=== PATIENT | female | born 1980 | race African-American/Black ===

== ENCOUNTER 2017-04-14 05:33 | Inpatient (IN) ==
[2017-04-14] MEDS ORDERED: ceFAZolin 2,000 MG in PREMIX 1 EACH IV ONE (05:41)
[2017-04-14] MEDS ORDERED: CITRIC ACID/SODIUM CITRATE 30 ML UDCUP PO ONE (05:41)
[2017-04-14] MEDS ORDERED: FAMOTIDINE 20 MG/2 ML VIAL IV ONE (05:41)
[2017-04-14 06:12] LABS: Basophils % 0.1 % (0.0-0.8); Eosinophils # 0.1 10*3/uL (0.0-0.87); Eosinophils % 0.7 % (0.00-10.9); Hematocrit 37.3 VOL% (35.7-47.0); Hemoglobin 12.5 GM/DL (12.0-16.0); Immature Granulocytes % 0.4 %; Immature Granulocytes Absolute 0.03 #; Lymphocytes # 1.6 10*3/uL (1.4-4.0); Lymphocytes % 23.2 % (21.3-54.2); Mean Corpuscular HGB Conc 33.5 GM/DL (32-36); Mean Corpuscular Hemoglobin 30 PG (27-34); Mean Corpuscular Volume 88.6 FL (87-102); Mean Platelet Volume 12.8 FL (9.6-12.0); Monocytes # 0.7 10*3/uL (0.11-0.8); Monocytes % 10.1 % (1.7-12.7); Neutrophils # 4.6 10*3/uL (1.4-7.4); Neutrophils % 65.5 % (38.7-73.9); Platelet Count 143 T/CUMM (130-400); Red Blood Count 4.21 MC/CUMM (3.8-5.5); Red Cell Distribution Width 13.5 % (9.3-17.3)
[2017-04-14] MEDS: LACTATED RINGERS 1,000 ML IV SCH ×5 (06:20→22:36)
[2017-04-14 06:24] LABS: PT Patient Result 10.5 SECS
[2017-04-14 06:31] LABS: Alanine Aminotransferase 19 U/L (13-56); Albumin 2.9 G/DL (3.4-5.0); Alkaline Phosphatase 202 U/L (45-117); Aspartate Amino Transferase 25 U/L (0-37); Bilirubin,Total < 0.39 MG/DL (0.2-1.0); Blood Urea Nitrogen 6 MG/DL (7-18); Calcium 9.2 MG/DL (8.5-10.1); Glucose 79 MG/DL (74-106); Osmolality,Calculated 275.4 MOS/KG (273-304); Sodium 140 MMOL/L (136-145); Total Protein 6.8 G/DL (6.4-8.3)
[2017-04-14] MEDS ORDERED: LABETALOL 200 MG TABLET PO ONE (08:00)
[2017-04-14] MEDS ORDERED: OXYTOCIN/LR 20 UNIT/1,000 ML BAG IV ONE ×2 (10:09→15:40)
[2017-04-14 10:37] LABS: Apearance,Urine CLEAR (Clear); Bacteria,Urine Many /HPF (Few); Bilirubin,Urine Negative (Negative); Blood, Urine Negative (Negative); Glucose,Urine (UA) Negative (Negative); Ketones,Urine 5 mg/dL (Negative); Mucus,Urine Occasional /LPF (Occasional); Nitrite,Urine Negative (Negative); Protein,Urine Negative; RBC,Urine <1 /HPF (0-4); Urine Color Yellow (Yellow); Urine Specific Gravity 1.009 (1.001-1.035); Urine Urobilinogen < 2.0 EU/DL (0.2-1.0); WBC,Urine 2 /HPF (0-6)
[2017-04-14] MEDS ORDERED: TISSUE ADHESIVE 1 EACH APPLICATOR TOP ONE (15:21)
[2017-04-14] MEDS ORDERED: SIMETHICONE CHEW 80 MG TABLET PO PRN (15:40)
[2017-04-14] MEDS ORDERED: fentaNYL 100 MCG/2 ML VIAL ONE (15:40)
[2017-04-14] MEDS ORDERED: ONDANSETRON 4 MG/2 ML VIAL IV PRN (15:40)
[2017-04-14] MEDS ORDERED: ACETAMINOPHEN 325 MG TABLET PO PRN (15:40)
--- NOTE | 2017-04-14 15:47 | Operative Note ---
Date of procedure: 04/14/17 Pre-op diagnosis: at term for repeat delivery, voluntary sterilization Post-op diagnosis: same Procedure: Repeat low transverse delivery, Filshie clip tubal sterilization Patient was taken the operating room, administered a spinal anesthetic and sterilely prepped and draped in the supine position with a Pollock catheter in place. A lower abdominal transverse incision was made through the skin and carried downward to the anterior rectus sheath. Individual bleeding sites were fulgurated for hemostasis. The anterior rectus sheath was incised transversely and dissected away from the underlying rectus muscle. Rectus muscle was divided in the midline and retracted bilaterally. Peritoneum was elevated with a pair of hemostats and the peritoneum incised with Metzenbaum scissors and extended longitudinally under direct visualization. Bladder blade was placed in the lower portion of the incision and vesicouterine fold identified. This was elevated and incised transversely with Metzenbaum scissors and the bladder dissected away from the lower uterine segment. Transverse incision was made with scissors through the lower uterine segment and membranes were reached the myometrium was expanded digitally with pressure and the membranes ruptured with an Allis clamp. A hand was grasp into the lower uterine segment and the head grasped and delivered into the incision. The head was stabilized with a single forceps blade and delivered with fundal pressure. The nasopharynx was suctioned and the cord clamped and cut. was transferred to the warmer. The placenta was delivered manually and Pitocin drip administered. The uterus was externalized and placed on traction. Inner layer of the myometrium was closed with a running interlocking stitch of 1-0 Vicryl. The outer layer was closed with a running stitch of 1-0 Vicryl. The vesicouterine fold was closed with running stitch of 1-0 Vicryl. A Filshie clip was placed at the junction of the mid and inner one third of the fallopian tube. Uterus was replaced in the abdomen and the abdomen irrigated with normal saline. The peritoneum was elevated and closed with running suture of 2-0 Vicryl. Rectus muscle was reapproximated in the midline with running stitch of 2-0 Vicryl. The anterior rectus sheath was closed with a running interlocking suture of 1-0 Vicryl in laterally and meeting in the midline. Stay sutures were placed either side of the midline time. The fat was irrigated and closed with running suture of 2-0 Vicryl. Again was closed with a running subcuticular suture of 3-0 Vicryl. Dermabond was placed on the wound. Anesthesia: spinal, epidural Surgeon / Physician: Tha Fournier Swinging Cut Off Saw Operator: Sally Pollard Estimated blood loss: other (500 cc) Specimens: other (Placenta) Condition: stable Disposition: floor Results - Labs CBC & BMP: 04/14/17 06:02 04/14/17 06:02 Discharge Plan - Discharge Medications No Action Labetalol Tab [Trandate Tab] 200 mg PO BID Vit No.130/Iron/Folic [ Tablet] 1 tablet PO DAILY - Follow Up or Referral - Forms/Instructions
[2017-04-14] MEDS ORDERED: RHO(D) IMMUNE GLOBULIN 300 MCG SYRINGE IM ONE (16:00)
--- NOTE | 2017-04-14 16:06 | Anesthesia Post-Op ---
Anesthesia Post OP - Post Ansesthetic Evaluation Patient seen in post op: Yes Resp: within normal limits CV: within normal limits Mental: within normal limits Temp: within normal limits [id number]: within normal limits Nausea and Vomiting: within normal limits Pain: within normal limits
[2017-04-14] MEDS ORDERED: LABETALOL 100 MG TABLET ONE (20:25)
[2017-04-14] MEDS: DOCUSATE SODIUM 100 MG CAPSULE PO SCH (20:28)
[2017-04-14] MEDS: IBUPROFEN 800 MG TABLET PO PRN (20:28)
[2017-04-14] MEDS: LABETALOL 100 MG TABLET PO SCH (20:35)
[2017-04-14 22:22] LABS: Basophils % 0.2 % (0.0-0.8); Hematocrit 32.8 VOL% (35.7-47.0); Hemoglobin 11.2 GM/DL (12.0-16.0); Immature Granulocytes % 0.6 %; Immature Granulocytes Absolute 0.07 #; Lymphocytes # 0.7 10*3/uL (1.4-4.0); Lymphocytes % 6.1 % (21.3-54.2); Mean Corpuscular HGB Conc 34.1 GM/DL (32-36); Mean Corpuscular Hemoglobin 30 PG (27-34); Mean Corpuscular Volume 89.1 FL (87-102); Mean Platelet Volume 12.2 FL (9.6-12.0); Monocytes # 0.9 10*3/uL (0.11-0.8); Monocytes % 7.2 % (1.7-12.7); Neutrophils # 10.2 10*3/uL (1.4-7.4); Neutrophils % 85.9 % (38.7-73.9); Platelet Count 120 T/CUMM (130-400); Red Blood Count 3.68 MC/CUMM (3.8-5.5); Red Cell Distribution Width 13.4 % (9.3-17.3); White Blood Count 11.9 T/CUMM (4-12)
[2017-04-15] MEDS: LACTATED RINGERS 1,000 ML IV SCH ×4 (00:17→06:17)
[2017-04-15 05:20] LABS: Basophils % 0.2 % (0.0-0.8); Eosinophils % 0.1 % (0.00-10.9); Hematocrit 28.7 VOL% (35.7-47.0); Hemoglobin 9.6 GM/DL (12.0-16.0); Immature Granulocytes % 0.5 %; Immature Granulocytes Absolute 0.05 #; Lymphocytes # 1.2 10*3/uL (1.4-4.0); Lymphocytes % 11.2 % (21.3-54.2); Mean Corpuscular HGB Conc 33.4 GM/DL (32-36); Mean Corpuscular Hemoglobin 30 PG (27-34); Mean Corpuscular Volume 88.9 FL (87-102); Mean Platelet Volume 12.6 FL (9.6-12.0); Monocytes # 0.9 10*3/uL (0.11-0.8); Monocytes % 8.1 % (1.7-12.7); Neutrophils # 8.4 10*3/uL (1.4-7.4); Neutrophils % 79.9 % (38.7-73.9); Platelet Count 119 T/CUMM (130-400); Red Blood Count 3.23 MC/CUMM (3.8-5.5); Red Cell Distribution Width 13.3 % (9.3-17.3); White Blood Count 10.5 T/CUMM (4-12)
[2017-04-15 06:12] LABS: Lymphocytes 8 % (20-55); Platelet Estimate Adequate; Segmented Neutrophils 87 % (50-85); Total Cells Counted 100
[2017-04-15] MEDS: MULTIVITAMIN (PRENATAL) TABLET PO SCH (09:25)
[2017-04-15] MEDS: DOCUSATE SODIUM 100 MG CAPSULE PO SCH ×2 (09:28→20:19)
[2017-04-15] MEDS: MAGNESIUM HYDROXIDE SUSP 30 ML UDCUP PO PRN ×2 (09:29→20:19)
--- NOTE | 2017-04-15 09:55 | OB/GYN Progress Note ---
Assessment and Plan (1) delivery, delivered, current hospitalization Status: Acute Assessment and plan: Satis progress, prepared for discharge in the morning. Current Visit: Yes [employer] - PN: Subj Interval history: Admitted yesterday for routine repeat delivery, which is performed without complication. Is having no complaints today. His ambulate and voiding tolerating diet and passing flatus and doing well with pain medicine. Exam [employer] - Constitutional Vitals: Vital Signs Temp Pulse Resp BP Pulse Ox 04/15/17 07:38 98.1 F 79 20 150/87 98 04/15/17 04:00 98.2 F 77 20 148/79 99 04/15/17 02:00 20 04/15/17 00:15 99.2 F 88 20 158/96 98 04/14/17 22:00 20 04/14/17 20:15 77 20 150/73 99 04/14/17 19:15 98.8 F 89 20 152/65 97 04/14/17 18:45 71 20 140/74 99 04/14/17 18:15 98.1 F 70 20 149/91 99 General appearance: no acute distress - Head Head exam: Present: normal inspection - Respiratory Respiratory exam: Present: clear to auscultation bilaterally. Absent: accessory muscle use - Cardiovascular Cardiovascular exam: Present: regular rate and rhythm - GI/Abdominal GI/Abdominal exam: Present: normal bowel sounds, soft, other (Fundus is tonic and nontender, incision is healing well and dressing is dry). Absent: guarding , tenderness, rebound - Extremities Exam Extremities exam: Present: normal inspection - Back Exam Back exam: Present: normal inspection - Neurological Exam Neurological exam: Present: alert, oriented X3 - Psychiatric Psychiatric exam: Present: normal affect, normal mood - Skin Skin exam: Present: normal color, warm, dry Results - Labs CBC & BMP: 04/15/17 05:08 04/14/17 06:02
[2017-04-15] MEDS: LABETALOL 100 MG TABLET PO SCH (20:19)
[2017-04-16] MEDS: LABETALOL 100 MG TABLET PO SCH ×2 (05:45→08:14)
[2017-04-16] MEDS ORDERED: BISACODYL 10 MG SUPP RECTAL ONE (08:02)
[2017-04-16] MEDS: MULTIVITAMIN (PRENATAL) TABLET PO SCH (08:13)
[2017-04-16] MEDS: DOCUSATE SODIUM 100 MG CAPSULE PO SCH (08:13)
[2017-04-16] MEDS: MAGNESIUM HYDROXIDE SUSP 30 ML UDCUP PO PRN (08:14)
[2017-04-16] MEDS: IBUPROFEN 800 MG TABLET PO PRN (08:43)
[2017-04-16] MEDS ORDERED: DIPH/TET/ACEL PERT BOOSTER VACCINE 0.5 ML VIAL IM ONE (08:45)
[2017-04-16 10:10] VITALS: BP 149/78
== END 2017-04-16 11:25 | disposition home or self-care (01) | DRG 765 ==
LOC: N.LD 05:33 → N.OB 17:50
PROVIDERS: ADMIT Obstetrics & Gynecology; ATTEND Obstetrics & Gynecology